=== PATIENT | female | born 1995 | race Caucasian/White ===

== ENCOUNTER 2018-08-10 19:55 | Emergency (ER) | payer BC ==
[2018-08-10 20:00] VITALS: BP 128/101
--- NOTE | 2018-08-10 20:06 | EDPHY ---
H & P Stated Complaint: L hip pain after snowboarding accident, ambulatory, hit head w /helmet Time Seen by Provider: 08/10/18 20:06 HPI/ROS: CHIEF COMPLAINT: Headache, left hip pain [place] HISTORY OF PRESENT ILLNESS: The patient presents the ED with complaints of a mild headache and left hip pain after she [place] The patient was helmeted and struck her head. She complains of a mild frontal headache and associated nausea. She denies any midline neck pain, numbness, weakness, chest pain, back pain, abdominal pain or shortness of breath. The patient does complain of some pain in her left hip which is worsened with attempted ambulation. The patient denies significant past medical history. Her headache is mild in nature and her hip pain is moderate. REVIEW OF SYSTEMS: A comprehensive 10 point review of systems is otherwise negative aside from elements mentioned in the history of present illness. Source: Patient - Personal History Current Tetanus/Diphtheria Vaccine: Unsure Current Tetanus Diphtheria and Acellular Pertussis (TDAP): Unsure - Medical/Surgical History Hx Asthma: No Hx Chronic Respiratory Disease: No Hx Diabetes: No Hx Cardiac Disease: No Hx Renal Disease: No Hx Cirrhosis: No Hx Alcoholism: No Hx HIV/AIDS: No Hx Splenectomy or Spleen Trauma: No Other PMH: denies - Social History Smoking Status: Never smoked - Physical Exam Exam: General Appearance: Alert, no distress Head: Atraumatic Eyes: Pupils equal, round, reactive ENT, Mouth: No hemotympanum, no oral trauma Neck: Nontender, trachea midline Respiratory: No chest wall tender, no subcutaneous air, lungs clear bilaterally Cardiovascular: Regular rate and rhythm Abdomen: Abdomen is soft and nontender, pelvis stable Skin: No lacerations, No abrasion Back: No midline T/L/S pain Extremities: Tenderness to palpation over left greater trochanter, pain worsened with movement Neurological: A&Ox3, normal motor function, normal sensory exam, GCS 15 Constitutional: Initial Vital Signs Temperature (C) 37.6 C 08/10/18 19:57 Heart Rate 110 H 08/10/18 19:57 Respiratory Rate 20 08/10/18 19:57 Blood Pressure 128/101 H 08/10/18 19:57 O2 Sat (%) 96 08/10/18 19:57 Allergies/Adverse Reactions: amoxicillin Allergy (Verified 08/10/18 19:57) Home Medications: Medication Instructions Recorded NK [No Known Home Meds] 08/10/18 Medical Decision Making - Diagnostics Imaging Results: Left hip x-ray: Images reviewed by myself. Impression: Negative for acute fracture ED Course/Re-evaluation: Patient presents to the ED for evaluation of headache and left hip pain after fall skiing. The patient arrives with a GCS of 15 without evidence of obvious head trauma. The patient does have evidence of a mild concussion however I do not feel requires CT scanning based upon her exam and current complaints. The patient did complain of some left hip pain. She was taken for a left hip x-ray which demonstrated no evidence of an obvious fracture, sprain or dislocation. The patient is advised of the x-ray findings. The patient will be discharged home with customary concussion aftercare instructions. The patient is referred to our on-call orthopedic surgeon for any unimproved symptoms in her hip. Patient is also given the number of our concussion specialist Dr. Rodriguez. Differential Diagnosis: Differential diagnosis considered includes hip fracture, hip strain, pelvic fracture, concussion, intracranial hemorrhage, skull fracture Departure - Departure Disposition: Home, Routine, Self-Care Clinical Impression: Concussion, Contusion of hip, left Condition: Good Instructions: Concussion (ED), Contusion in Adults (ED) Additional Instructions: 1. Your x-ray demonstrates no evidence of an obvious fracture. 2. Take Ibuprofen or Motrin 600 mg by mouth three times a day. 3. Ice area frequently 4. Concussion aftercare as directed. Please follow up with our concussion specialist Dr. Rodriguez for any persistent symptoms of headache or other concerns. 5. Please follow up with the orthopedic surgeon you have been referred to, Dr. Haque for any persistent hip pain. Referrals: Indio Haque MD [Medical Doctor] - As per Instructions Nohemy Rodriguez MD [Medical Doctor] - As per Instructions
== END 2018-08-10 21:04 | disposition home or self-care (01) ==
DX: S06.0X0A Concussion without loss of consciousness, initial encounter (principal); M25.552 Pain in left hip; V00.321A Fall from snow-skis, initial encounter; Y93.23 Activity, snow (alpine) (downhill) skiing, snowboarding, sledding, tobogganing and snow tubing

== ENCOUNTER 2018-10-30 19:14 | Emergency (ER) | payer BC | END 2018-10-30 21:12 | disposition home or self-care (01) ==